=== PATIENT | female | born 1965 | race Caucasian/White ===

== ENCOUNTER 2022-09-02 16:09 | Emergency (ER) | payer OTHER, SELFPAY ==
[2022-09-02 16:45] VITALS: BP 161/78; PULSE 87; RESP 18; TEMP 36.5; O2SAT 99
--- NOTE | 2022-09-02 17:00 | ED.URI ---
HPI - URI/Sore Throat General Chief Complaint: Upper Respiratory Infection Stated Complaint: sob,cough Time Seen by Provider: 09/02/22 17:00 Source: patient Mode of arrival: ambulatory Limitations: no limitations History of Present Illness HPI Narrative: Mini is a 56-year-old female patient presenting to the clinic today with complaints shortness breath and cough x1 day. She reports she has had more of a cough today and it is now becoming more loose. States she had a coughing fit this morning and had a hard time breathing afterwards. She denies any fever, chills, runny nose, or congestion. She denies being a smoker. No history of asthma MD elicited complaint: sore throat and nasal congestion Related Data Home Medications Medication Instructions Recorded Confirmed estradiol 0.5 mg tablet 1 mg PO DAILY 09/02/22 09/02/22 Allergies Allergy/AdvReac Type Severity Reaction Status Date / Time No Known Allergies Allergy Mild Unverified 09/02/22 16:47 Review of Systems Review of Systems: Pertinent positives per HPI. Patient denies any fever, chills, rash, headache, visual changes, dizziness, cough, shortness of breath, chest pain, palpitations, nausea, vomiting, diarrhea, constipation, abdominal pain, or any urinary issues. PMFSH Comments At the time of my signature, I reviewed and agree with the nursing past medical, surgical, social, and family history. There is no relevant family history pertinent to the patient complaint. Exam Narrative: General: Well-developed, well nourished, in no apparent distress Head: Normocephalic, atraumatic Eyes: Pupils equally round and reactive to light bilaterally, EOM intact, sclera and conjunctive clear, no discharge, lids normal Ears: TMs intact and clear, ear canals clear, no drainage, grossly hearing normal. Nose: Nares patent, clear discharge, no inflammation, no sinus tenderness. Mouth: Oral pharynx without lesions or masses, good dentition, MMM. Neck: Supple, trachea midline, no enlargement of anterior or posterior cervical nodes, no thyroid masses or goiter palpable. Cardio: Regular rate and rhythm, s1 and s2 normal, no murmur appreciated. Resp: Lungs sounds time with faint wheeze, no rhonchi, rales, or rubs Course Course Emergency Course: Portions of this record may have been created with voice recognition software. Level of Care: Express Care Visit Vital Signs Vital signs: Vital Signs Temperature 36.5 C 09/02/22 16:45 Pulse Rate 87 09/02/22 16:45 Respiratory Rate 18 09/02/22 16:45 Blood Pressure 161/78 H 09/02/22 16:45 Pulse Oximetry 99 09/02/22 16:45 Oxygen Delivery Room Air 09/02/22 16:45 Temperature 36.5 C 09/02/22 16:45 Pulse Rate 87 09/02/22 16:45 Respiratory Rate 18 09/02/22 16:45 Blood Pressure 161/78 H 09/02/22 16:45 Pulse Oximetry 99 09/02/22 16:45 Oxygen Delivery Room Air 09/02/22 16:45 Vital signs reviewed MDM - URI/Sore Throat MDM Narrative Medical decision making narrative: At the time of visit patient is resting comfortably on the exam table. I suspect patient has bronchitis. DuoNeb treatment was given the clinic and this improved the patient's lung sounds. Prescription for albuterol and prednisone was sent to the pharmacy. Supportive measures were discussed with the patient and she voiced understanding of discharge instruction Differential Diagnosis Differential diagnosis: Likely upper respiratory infection, otitis media, sinusitis, viral infection, bronchitis, influenza, pharyngitis and other (COVID) Discharge Plan Discharge Clinical Impression: Bronchitis Patient Disposition: Home, Self-Care Condition: Stable Instructions: Antibiotic Form, Acute Bronchitis (ED) Additional Instructions: Take prescription medications only as prescribed-albuterol inhaler and prednisone as prescribed Increase fluids and stay well hydrated Tylenol/motrin for pain/fever Flonase and OTC anti
[2022-09-02] MEDS: IPRATROPIUM BR 0.02% INH SOLN 0.5 MG/2.5 ML VIAL INHALATION (17:09)
[2022-09-02] MEDS: ALBUTEROL SULFATE NEB 2.5 MG/3 ML INH INHALATION (17:09)
[2022-09-02 17:25] VITALS: PULSE 92; RESP 18; O2SAT 100
== END 2022-09-02 17:30 | disposition home or self-care (01) ==
PROVIDERS: Emergency Provider Nurse Practitioner Family; PCP Internal Medicine
DX: J40 Bronchitis, not specified as acute or chronic (principal)
CPT/HCPCS: 94640; 99213; G0463